=== PATIENT | female | born 1965 | race Caucasian/White ===

== ENCOUNTER 2016-10-28 21:27 | Emergency (ER) | payer OTHER ==
[2016-10-28 21:59] LABS: URINE APPEARANCE SL CLOUDY; URINE BILIRUBIN 1+ (NEGATIVE); URINE BLOOD 3+ (NEGATIVE); URINE COLOR RED; URINE GLUCOSE (UA) Negative (NEGATIVE); URINE KETONE Trace (NEGATIVE); URINE LEUK ESTERASE Negative (NEGATIVE); URINE NITRITE Negative (NEGATIVE); URINE PROTEIN 2+ (NEGATIVE); URINE UROBILINOGEN 1.0 E.U/dl (0.2-1.0)
[2016-10-28 22:01] VITALS: BP 163/79; PULSE 90; TEMP 98.7; BMI 32.5
[2016-10-28 22:01] LABS: URINE BACTERIA FEW /hpf (NEGATIVE); URINE RBC >100 /hpf (0-3)
--- NOTE | 2016-10-28 22:01 | PDOC ---
History of Present Illness - General History Source: Patient Exam Limitations: No Limitations - History of Present Illness Initial Comments: 10/28/16 22:02 The patient is a 50 year old female, with a significant past medical history of vertigo, HTN, HLD and depression, who presents to the emergency department with hematuria today. She reports that she urinated blood this morning and decided to drink more water throughout the day for which the urine was getting more clear. But on her last urination around 6:30pm, her urine was bright red blood. She states that last night she had 4 alcoholic drinks, pomegranate martinis and notes that she does not usually drink. She states that she does have some abdominal discomfort but it's mild in severity. The patient denies dysuria, frequency, urgency and hematuria. LMP: Currently in Menopause Allergies: None Past surgical history: Social history: Alcohol use. No tobacco or drug use reported <Dex Mcclain - Last Filed: 10/28/16 22:02> <Michael Powers - Last Filed: 10/28/16 23:08> - General Chief Complaint: Hematuria Stated Complaint: BLOOD IN URINE Time Seen by Provider: 10/28/16 21:39 Past History <Dex Mcclain - Last Filed: 10/28/16 22:02> - Past Medical History HTN: Yes Hypercholesterolemia: Yes Other medical history: DEPRESSION - Psycho/Social/Smoking Cessation Hx Anxiety: Yes Suicidal Ideation: No Smoking History: Never smoked Have you smoked in the past 12 months: No Information on smoking cessation initiated: No Hx Alcohol Use: No Drug/Substance Use Hx: No Substance Use Type: None <Michael Powers - Last Filed: 10/28/16 23:08> - Past Medical History Allergies/Adverse Reactions: Allergies Allergy/AdvReac Type Severity Reaction Status Date / Time No Known Allergies Allergy Verified 10/28/16 21:52 Home Medications: Ambulatory Orders Alprazolam [Xanax] 0.5 mg PO PRN PRN 05/26/16 Sertraline HCl [Zoloft -] 50 mg PO DAILY 05/26/16 Meclizine HCl [Antivert -] 25 mg PO TID PRN #14 tablet 07/10/16 Ondansetron [Zofran -] 4 mg PO TID PRN #14 tablet 07/10/16 Review of Systems - Review of Systems Able to Perform ROS?: Yes : Yes: Hematuria All Other Systems: Reviewed and Negative <Dex Mcclain - Last Filed: 10/28/16 22:02> *Physical Exam - Vital Signs Last Vital Signs Temp Pulse Resp BP Pulse Ox 98.7 F 90 18 163/79 99 10/28/16 21:57 10/28/16 21:57 10/28/16 21:57 10/28/16 21:57 10/28/16 21:57 <Dex Mcclain - Last Filed: 10/28/16 22:02> - Vital Signs Last Vital Signs Temp Pulse Resp BP Pulse Ox 98.7 F 90 18 163/79 99 10/28/16 21:57 10/28/16 21:57 10/28/16 21:57 10/28/16 21:57 10/28/16 21:57 <Michael Powers - Last Filed: 10/28/16 23:08> ED Treatment Course - ADDITIONAL ORDERS Additional order review: Laboratory Results 10/28/16 21:46 Urine Color Red Urine Appearance Sl cloudy Urine pH 6.0 Ur Specific [place] 1.025 Urine Protein 2+ H Urine Glucose (UA) Negative Urine Ketones Trace Urine Blood 3+ H Urine Nitrite Negative Urine Bilirubin 1+ H Urine Urobilinogen 1.0 e.u/dl Ur Leukocyte Esterase Negative Urine RBC >100 Urine WBC 2-4 Ur Epithelial Cells Few Urine Bacteria Few <Dex Mcclain - Last Filed: 10/28/16 22:02> - LABORATORY CBC & Chemistry Diagram: 10/28/16 22:18 10/28/16 22:18 - ADDITIONAL ORDERS Additional order review: Laboratory Results 10/28/16 21:46 Urine Color Red Urine Appearance Sl cloudy Urine pH 6.0 Ur Specific [place] 1.025 Urine Protein 2+ H Urine Glucose (UA) Negative Urine Ketones Trace Urine Blood 3+ H Urine Nitrite Negative Urine Bilirubin 1+ H Urine Urobilinogen 1.0 e.u/dl Ur Leukocyte Esterase Negative <Michael Powers - Last Filed: 10/28/16 23:08> *DC/Admit/Observation/Transfer - Attestations Scribe Attestion: 10/28/16 22:02 Documentation prepared by Dex Mcclain, acting as medical billing representative for Michael Powers MD <Dex Mcclain - Last Filed: 10/28/16 22:02> <Michael Powers - Last Filed: 10/28/16 23:08> Diagnosis at time of Disposition: Painless hematuria - Discharge Dispostion Disposition: HOME - Referrals Referrals: Saulo Khan [Primary Care Provider] - Call tomorrow - Patient Instructions Additional Instructions: plenty of fluids take antibiotics for 3 days see your doctor tomorrow return if worsening or new symptoms
[2016-10-28 22:41] LABS: MCH 30.5 pg (25.7-33.7); MCHC 33.4 g/dl (32.0-36.0); MEAN CELL VOLUME 91.5 fl (80-96); MEAN PLT VOLUME 8.7 fl (7.5-11.1); PLATELET COUNT 266 K/MM3 (134-434); RDW 12.4 % (11.6-15.6); WHITE BLOOD COUNT 7.1 K/mm3 (4.0-10.0)
[2016-10-28 22:46] LABS: CREATININE 0.6 mg/dl (0.6-1.3)
[2016-10-28] MEDS ORDERED: CEPHALEXIN MONOHYDRATE 500 MG CAPSULE (UD) ONE (23:08)
== END 2016-10-28 23:15 | disposition home or self-care (01) ==
LOC: FER 21:27
DX: R31.9 Hematuria, unspecified (principal); I10 Essential (primary) hypertension; E78.00 Pure hypercholesterolemia, unspecified; F32.9 Major depressive disorder, single episode, unspecified
CPT/HCPCS: 36415; 80048; 81003; 81015; 85027; 99281-25